=== PATIENT | male | born 1955 | race African-American/Black ===

== ENCOUNTER 2018-08-18 12:00 | Inpatient (IN) | payer BC, MEDICARE ==
[~2018-08-18] VITALS: Ht 190.5 cm; Wt 104.3 kg
[2018-08-18] MEDS ORDERED: DIPHENHYDRAMINE 50MG CAPSULE PO ONE (13:00)
[2018-08-18 13:40] LABS: BASOPHILS % 0.5 % (0.0-2.0); EOSINOPHILS % 2.9 % (0.0-5.0); HEMATOCRIT. 40.9 % (42.0-52.0); HEMOGLOBIN. 13.8 g/dL (14.0-18.0); LYMPHOCYTES % 15.4 % (20.0-50.0); MEAN CORPUSCULAR HEMOGLOBIN 31.8 pg (28.0-32.0); MEAN CORPUSCULAR VOLUME 94.1 fL (80.0-94.0); MONOCYTES % 7.4 % (2.0-8.0); NEUTROPHILS % 73.8 % (40.0-76.0); PLATELET 208 x1000/uL (130-400); RED BLOOD CELL COUNT 4.35 mill/uL (4.7-6.1); RED CELL DISTRIBUTION WIDTH 14.5 % (11.6-14.6)
[2018-08-18 13:43] LABS: CHLORIDE 103 mEq/L (98-107)
[2018-08-18 13:44] LABS: CLARITY URINE CLEAR (CLEAR); COLOR URINE YELLOW (YELLOW); KETONES URINE TRACE (NEGATIVE); LEUKOCYTE ESTERASE URINE NEGATIVE (NEGATIVE); NITRITE URINE NEGATIVE (NEGATIVE); OCCULT BLOOD URINE NEGATIVE (NEGATIVE); PH URINE 7.5 (4.5-8.0); PROTEIN URINE TRACE (NEGATIVE); SPECIFIC GRAVITY URINE 1.019 (1.005-1.030); UROBILINOGEN URINE 0.2 E.U./dL (0.2-1.0)
[2018-08-18] MEDS ORDERED: AMPICILLIN SOD/SULBACTAM NA 3 G in SODIUM CHLORIDE 0.9% 100 ML IV STA (14:40)
[2018-08-18 20:45] VITALS: BP 160/101
[2018-08-18] MEDS ORDERED: DOCU-150 PO (20:52)
[2018-08-18] MEDS ORDERED: ASPI-986 PO (20:52)
[2018-08-18] MEDS ORDERED: BICA50TA48 PO (20:52)
[2018-08-18] MEDS ORDERED: POTA20TA12 PO (20:52)
[2018-08-18] MEDS ORDERED: MU V PO (20:52)
[2018-08-18] MEDS ORDERED: METO100T16 PO (20:52)
[2018-08-18] MEDS ORDERED: AMLO10TA4 PO (20:52)
[2018-08-18] MEDS ORDERED: HYDR25TA PO (20:52)
[2018-08-18] MEDS ORDERED: CALC-36 PO (20:52)
[2018-08-18] MEDS ORDERED: LOSA100T3 PO (20:52)
[2018-08-18] MEDS ORDERED: CLOP75TA16 PO (20:52)
[2018-08-18 21:00] VITALS: BP 160/101
[2018-08-18] MEDS ORDERED: CLONIDINE 0.1MG TABLET PO PRN (21:30)
[2018-08-18] MEDS ORDERED: HYDROCODONE/ACETAMINOPHEN 5/325MG TABLET PO PRN (21:30)
[2018-08-18] MEDS ORDERED: DOCUSATE SODIUM 100MG CAPSULE PO PRN (22:00)
[2018-08-18] MEDS ORDERED: PNEUMOCOCCAL 23-VAL P-SAC VAC 0.5 ML IM ONE (23:15)
[2018-08-18] MEDS: PIPERACILLIN/TAZ 3.375G PREMIX 50 ML IV SCH (23:43)
[2018-08-19] VITALS: BP 135/73
[2018-08-19 04:00] VITALS: BP 144/72
[2018-08-19] MEDS: PIPERACILLIN/TAZ 3.375G PREMIX 50 ML IV SCH ×4 (05:47→22:14)
[2018-08-19 08:20] VITALS: BP 153/91
[2018-08-19] MEDS ORDERED: CALCIUM CARBONATE/VITAMIN D3 500MG TABLET PO SCH (09:00)
[2018-08-19] MEDS: MULTIVITAMINS,THER W-MINERALS TABLET PO SCH (09:02)
[2018-08-19] MEDS: BICALUTAMIDE 50 MG TABLET PO SCH (09:02)
[2018-08-19] MEDS: LOSARTAN POTASSIUM 100 MG TABLET PO SCH (09:03)
[2018-08-19] MEDS: METOPROLOL TARTRATE 50MG TABLET PO SCH (09:03)
[2018-08-19] MEDS: HYDROCHLOROTHIAZIDE 25MG TABLET PO SCH (09:03)
[2018-08-19] MEDS: AMLODIPINE 10MG TABLET PO SCH (09:03)
[2018-08-19] MEDS: ASPIRIN 325MG TABLET PO SCH (09:03)
[2018-08-19] MEDS: POTASSIUM CHLORIDE 20MEQ TABLET SR PO SCH ×2 (09:03→17:47)
[2018-08-19] MEDS: CLOPIDOGREL 75MG TABLET PO SCH (09:04)
[2018-08-19 12:00] VITALS: BP 145/86
[2018-08-19 16:00] VITALS: BP 124/78
[2018-08-19 20:00] VITALS: BP 140/77
[2018-08-19 21:00] LABS: LDL CHOLESTEROL 115 mg/dL (5-100)
[2018-08-19 21:01] LABS: CREATINE KINASE 111 IU/L (39-308); HDL CHOLESTEROL 40 mg/dL (40-59)
[2018-08-20] VITALS (8 sets, daily range): BP systolic 129–166; BP diastolic 74–114
[2018-08-20] MEDS: PIPERACILLIN/TAZ 3.375G PREMIX 50 ML IV SCH ×3 (05:35→17:20)
[2018-08-20] MEDS ORDERED: CALCIUM CARBONATE/VITAMIN D3 500MG TABLET PO SCH (09:19)
[2018-08-20] MEDS: BICALUTAMIDE 50 MG TABLET PO SCH (09:20)
[2018-08-20] MEDS: CLOPIDOGREL 75MG TABLET PO SCH (09:21)
[2018-08-20] MEDS: HYDROCHLOROTHIAZIDE 25MG TABLET PO SCH (09:21)
[2018-08-20] MEDS: AMLODIPINE 10MG TABLET PO SCH (09:21)
[2018-08-20] MEDS: ASPIRIN 325MG TABLET PO SCH (09:21)
[2018-08-20] MEDS: MULTIVITAMINS,THER W-MINERALS TABLET PO SCH (09:22)
[2018-08-20] MEDS: METOPROLOL TARTRATE 50MG TABLET PO SCH (09:22)
[2018-08-20] MEDS: LOSARTAN POTASSIUM 100 MG TABLET PO SCH (09:22)
[2018-08-20] MEDS: POTASSIUM CHLORIDE 20MEQ TABLET SR PO SCH ×2 (09:22→17:19)
[2018-08-20 10:32] LABS: HEMATOCRIT 39.3 % (42.0-52.0); HEMOGLOBIN 13.3 g/dL (14.0-18.0); MEAN CORPUSCULAR HEMOGLOBIN 31.7 pg (28.0-32.0); MEAN CORPUSCULAR VOLUME 93.6 fL (80.0-94.0); PLATELET 181 x1000/uL (130-400); RED CELL DISTRIBUTION WIDTH 14.6 % (11.6-14.6)
[2018-08-20 10:48] LABS: CHLORIDE 105 mEq/L (98-107)
[2018-08-20] MEDS ORDERED: NIFEDIPINE XL 60MG TAB PO SCH (11:12)
[2018-08-21] MEDS ORDERED: ASPIRIN 81MG TABLET PO SCH (09:00)
[2018-08-21] MEDS ORDERED: METOPROLOL TARTRATE 25MG TABLET PO SCH (09:00)
== END 2018-08-20 21:25 | disposition home or self-care (01) | DRG 73 ==
LOC: ER 13:25 → 7WST 15:49 → ENRESERV 17:07
PROVIDERS: ADMIT Internal Medicine; ATTEND Internal Medicine
DX: G90.8 Other disorders of autonomic nervous system (principal); N17.0 Acute kidney failure with tubular necrosis; L03.211 Cellulitis of face; R73.9 Hyperglycemia, unspecified; R00.8 Other abnormalities of heart beat; R00.1 Bradycardia, unspecified; E87.6 Hypokalemia; S00.81XA Abrasion of other part of head, initial encounter; F17.210 Nicotine dependence, cigarettes, uncomplicated; I12.9 Hypertensive chronic kidney disease with stage 1 through stage 4 chronic kidney disease, or unspecified chronic kidney disease; J44.9 Chronic obstructive pulmonary disease, unspecified; N18.9 Chronic kidney disease, unspecified; Z90.79 Acquired absence of other genital organ(s); Z88.1 Allergy status to other antibiotic agents; Z82.49 Family history of ischemic heart disease and other diseases of the circulatory system; Z85.46 Personal history of malignant neoplasm of prostate; Z86.73 Personal history of transient ischemic attack (TIA), and cerebral infarction without residual deficits; Z91.048 Other nonmedicinal substance allergy status; W18.39XA Other fall on same level, initial encounter; Y93.89 Activity, other specified; Y92.89 Other specified places as the place of occurrence of the external cause; Y99.8 Other external cause status; Z72.89 Other problems related to lifestyle
CPT/HCPCS: 36415; 70486; 71045; 76770; 80048; 80061; 82550; 82962; 83036; 83605; 83735; 83880; 84153; 84484; 85027; 93005; 93306; 93880; 96365; 96366; 97162; 99285; J0295; J2543; J7050; Q0163; G0103